=== PATIENT | male | born 1980 ===

== ENCOUNTER 2023-01-20 12:20 | Observation (INO) | payer OTHER ==
[2023-01-20] MEDS ORDERED: SODIUM CHLORIDE 0.9% 1,000 ML IV STA (12:51)
[2023-01-20] MEDS ORDERED: LORazepam 2 MG/ML INJ IV STA (12:52)
[2023-01-20] MEDS ORDERED: diphenhydrAMINE 50 MG/ML 1 ML VIAL IVP STA (12:52)
[2023-01-20] MEDS ORDERED: METOCLOPRAMIDE 5 MG/ML 2 ML VIAL IVP STA (12:52)
--- NOTE | 2023-01-20 12:53 | ED ---
General Adult HPI - General Chief complaint: Seizure Stated complaint: Seizure Time Seen by Provider: 01/20/23 12:30 Source: patient Mode of arrival: ambulatory Limitations: no limitations - History of Present Illness Initial comments: 42-year-old male presents to the emergency department from [place]. Patient is therefore opiate and cocaine abuse. He has been there for 4 days. He is on Subutex for withdrawal. Today the patient was found on the ground shaking. They were concerned for seizure-like activity. Patient has no history of seizures. Denies any alcohol use. They state that he was laying down and therefore there was no injury sustained. No head trauma. EMS found the patient to be in significant withdrawals. He was vomiting therefore he is given 4mg of Zofran by them. He arrives and continues to throw up. He states that previous to being hospitalized he was on methadone and he feels like he is withdrawing from his methadone. He denies chest pain or shortness of breath. No alleviating, precipitating or modifying factors - Related Data Home Medications Medication Instructions Recorded Confirmed Acetaminophen Tab [Tylenol] 650 mg PO Q4H MDD 4 doses 01/20/23 01/20/23 Calcium/Mag/Zinc/D 1 tab PO TID PRN 01/20/23 01/20/23 Chlorpheniramine Maleate 4 mg PO Q4H PRN 01/20/23 01/20/23 [Chlor-Trimeton] Ibuprofen [Motrin Ib] 600 mg PO Q6H PRN 01/20/23 01/20/23 Loperamide [Imodium] 4 mg PO QID PRN MDD 8 caps 01/20/23 01/20/23 Melatonin 5 mg PO HS 01/20/23 01/20/23 Multivitamins, Thera [Multivitamin 1 tab PO DAILY 01/20/23 01/20/23 (formulary)] Mylanta 30 ml PO Q4H PRN 01/20/23 01/20/23 Thiamine [Vitamin B-1] 100 mg PO DAILY 01/20/23 01/20/23 Tigan 200mg/2ml 200 mg IM Q6H PRN 01/20/23 01/20/23 Zofran 4mg/2ml 4 mg IM Q6H PRN 01/20/23 01/20/23 buprenorphine HCL [Subutex] 4 mg SUBLINGUAL DIRECTED 01/20/23 01/20/23 buprenorphine HCL [Subutex] See Taper SL DIRECTED 01/20/23 01/20/23 cloNIDine HCL [Catapres] 0.1 - 0.3 mg PO Q4H PRN 01/20/23 01/20/23 ondansetron HCL [Zofran] 8 mg PO Q6H PRN 01/20/23 01/20/23 Allergies Allergy/AdvReac Type Severity Reaction Status Date / Time bee pollen Allergy Anaphylaxis Verified 01/20/23 13:42 Review of Systems ROS Statement: Those systems with pertinent positive or pertinent negative responses have been documented in the HPI. ROS Other: All systems not noted in ROS Statement are negative. Past Medical History Additional Past Medical History / Comment(s): unknown cardiac hx. History of Any Multi-Drug Resistant Organisms: None Reported Past Surgical History: No Surgical Hx Reported Past Psychological History: No Psychological Hx Reported Smoking Status: Current every day smoker Past Drug Use History: Cocaine, Opiates General Exam Limitations: no limitations General appearance: alert, other (Arrives vomiting) Head exam: Present: atraumatic, normocephalic, normal inspection Eye exam: Present: normal appearance, PERRL, EOMI. Absent: scleral icterus, conjunctival injection, periorbital swelling ENT exam: Present: normal exam, mucous membranes moist Neck exam: Present: normal inspection. Absent: tenderness, meningismus, lymphadenopathy Respiratory exam: Present: normal lung sounds bilaterally. Absent: respiratory distress, wheezes, rales, rhonchi, stridor Cardiovascular Exam: Present: normal rhythm, bradycardia, normal heart sounds. Absent: systolic murmur, diastolic murmur, rubs, gallop, clicks GI/Abdominal exam: Present: soft, normal bowel sounds. Absent: distended, tenderness, guarding, rebound, rigid Extremities exam: Present: normal inspection, full ROM, normal capillary refill. Absent: tenderness, pedal edema, joint swelling, calf tenderness Back exam: Present: normal inspection Neurological exam: Present: alert, oriented X3, CN II-XII intact Psychiatric exam: Present: normal affect, normal mood Skin exam: Present: warm, dry, intact, normal color. Absent: rash Course Vital Signs 01/20/23 01/20/23 01/20/23 12:27 13:15 14:16 Temperature 98 F Pulse Rate 46 L 48 L 55 L Respiratory 18 16 16 Rate Blood Pressure 136/88 140/67 136/76 O2 Sat by Pulse 100 100 100 Oximetry 01/20/23 01/20/23 16:14 18:07 Temperature 98.0 F 99.6 F Pulse Rate 47 L 48 L Respiratory 18 16 Rate Blood Pressure 144/79 153/85 O2 Sat by Pulse 100 99 Oximetry Medical Decision Making - Medical Decision Making Was pt. sent in by a medical professional or institution (, PA, CONTAINER MAKER, urgent care, hospital, or [place] health care facility...) When possible be specific @ -[place] Did you speak to anyone other than the patient for history (EMS, parent, family, police, friend...)? What history was obtained from this source @ -EMS Did you review nursing and triage notes (agree or disagree)? Why? @ -I reviewed and agree with nursing and triage notes Were old charts reviewed (outside hosp., previous admission, EMS record, old EKG, old radiological studies, urgent care reports/EKG's, [place] health care facility records)? Report findings @ -No old charts were reviewed Differential Diagnosis (chest pain, altered mental status, abdominal pain women, abdominal pain men, vaginal bleeding, weakness, fever, dyspnea, syncope, headache, dizziness, GI bleed, back pain, seizure, CVA, palpatations, mental health, musculoskeletal)? @ -Differential Seizure: Recurrent seizure disorder, febrile seizure, alcohol withdrawal, stimulants, meningitis, encephalitis, intercranial hemorrhage, intracranial tumor, stroke, eclampsia, thyrotoxicosis, hypocalcemia, hyponatremia, hypernatremia, hypomagnesemia, psychogenic, this is not meant to be an all-inclusive list. EKG interpreted by me (3pts min.). @ -Yes and demonstrates sinus bradycardia with a rate of 49. CO interval 116. QRS 78. QTC 403. No acute ST segment elevations or depressions X-rays interpreted by me (1pt min.). @ -None done CT interpreted by me (1pt min.). @ -None done U/S interpreted by me (1pt. min.). @ -None done What testing was considered but not performed or refused? (CT, X-rays, U/S, labs)? Why? @ -None What meds were considered but not given or refused? Why? @ -None Did you discuss the management of the patient with other professionals (professionals i.e. , PA, CONTAINER MAKER, lab, RT, psych nurse, social work supervisor, financial internship, te acher, infantry weapons officer, disease case manager rn)? Give summary @ -Spoke with Dr. hassan for admission Was smoking cessation discussed for >3mins.? @ -No Was critical care preformed (if so, how long)? @ -No Were there social determinants of health that impacted care today? How? (Homelessness, low income, unemployed, alcoholism, drug addiction, transportation, low edu. Level, literacy, decrease access to med. care, long-term, rehab)? @ -No Was there de-escalation of care discussed even if they declined (Discuss DNR or withdrawal of care, Hospice)? DNR status @ -No What co-morbidities impacted this encounter? (DM, HTN, Smoking, COPD, CAD, Cancer, CVA, ARF, Chemo, Hep., AIDS, mental health diagnosis, sleep apnea, morbid obesity)? @ -Polysubstance abuse Was patient admitted / discharged? Hospital course, mention meds given and route, prescriptions, significant lab abnormalities, going to OR and other pertinent info. @ -Upon arrival patient was placed into room 9. Thorough history and physical exam was performed. IV was established. He was given Reglan and Benadryl as well as Ativan. Laboratory studies were conducted. Recommended admission for significant withdrawal for which the patient was agreeable. Spoke with Dr. hassan who agreed with the patient Undiagnosed new problem with uncertain prognosis? @ -No Drug Therapy requiring intensive monitoring for toxicity (Heparin, Nitro, Insulin, Cardizem)? @ -No Were any procedures done? @ -No Diagnosis/symptom? @ -Acute nausea vomiting, acute cocaine and opiate withdrawal, possible seizure-like activity Acute, or Chronic, or Acute on Chronic? @ -Acute Uncomplicated (without systemic symptoms) or Complicated (systemic symptoms)? @ -Complicated Side effects of treatment? @ -No Exacerbation, Progression, or Severe Exacerbation? @ -No Poses a threat to life or bodily function? How? (Chest pain, [place], HI, pneumonia, PE, COPD, DKA, ARF, appy, cholecystitis, CVA, Diverticulitis, Homicidal, Suicidal, threat to staff... and all critical care pts) @ -No - Lab Data Result diagrams: 01/21/23 05:56 01/21/23 05:56 Lab Results 01/20/23 01/20/23 01/20/23 Range/Units 12:57 12:57 12:57 WBC 8.3 (3.8-10.6) k/uL RBC 5.46 (4.30-5.90) m/uL Hgb 15.5 (13.0-17.5) gm/dL Hct 45.6 (39.0-53.0) % MCV 83.4 (80.0-100.0) fL MCH 28.4 (25.0-35.0) pg MCHC 34.0 (31.0-37.0) g/dL RDW 13.7 (11.5-15.5) % Plt Count 370 (150-450) k/uL MPV 6.8 Neutrophils % 72 % Lymphocytes % 23 % Monocytes % 3 % Eosinophils % 1 % Basophils % 0 % Neutrophils # 5.9 (1.3-7.7) k/uL Lymphocytes # 1.9 (1.0-4.8) k/uL Monocytes # 0.2 (0-1.0) k/uL Eosinophils # 0.1 (0-0.7) k/uL Basophils # 0.0 (0-0.2) k/uL Sodium 140 (137-145) mmol/L Potassium 4.2 (3.5-5.1) mmol/L Chloride 103 (98-107) mmol/L Carbon Dioxide 23 (22-30) mmol/L Anion Gap 14 mmol/L BUN 10 (9-20) mg/dL Creatinine 0.77 (0.66-1.25) mg/dL Est GFR (CKD-EPI)AfAm >90 (>60 ml/min/1.73 sqM) Est GFR (CKD-EPI)NonAf >90 (>60 ml/min/1.73 sqM) Glucose 125 H (74-99) mg/dL Lactic Ac Sepsis Rflx Plasma Lactic Acid Michael (0.7-2.0) mmol/L Calcium 10.6 H (8.4-10.2) mg/dL Magnesium 2.4 H (1.6-2.3) mg/dL Total Bilirubin 0.6 (0.2-1.3) mg/dL AST 23 (17-59) U/L ALT 20 (4-49) U/L Alkaline Phosphatase 91 (38-126) U/L Creatine Kinase 130 (55-170) U/L Troponin I (0.000-0.034) ng/mL Total Protein 9.4 H (6.3-8.2) g/dL Albumin 5.1 H (3.5-5.0) g/dL Prolactin 6.600 (2.100-17.000) ng/mL Urine Color Light Yellow Urine Appearance Cloudy (Clear) Urine pH 8.5 H (5.0-8.0) Ur Specific [place] 1.015 (1.001-1.035) Urine Protein Trace H (Negative) Urine Glucose (UA) Negative (Negative) Urine Ketones Negative (Negative) Urine Blood Negative (Negative) Urine Nitrite Negative (Negative) Urine Bilirubin Negative (Negative) Urine Urobilinogen <2.0 (<2.0) mg/dL Ur Leukocyte Esterase Negative (Negative) Urine RBC 1 (0-5) /hpf Urine WBC 1 (0-5) /hpf Amorphous Sediment Rare H (None) /hpf Urine Mucus Rare H (None) /hpf Urine Opiates Screen Not Detected (NotDetected) Ur Oxycodone Screen Not Detected (NotDetected) Urine Methadone Screen Not Detected (NotDetected) Ur Propoxyphene Screen Not Detected (NotDetected) Ur Barbiturates Screen Not Detected (NotDetected) U Tricyclic Antidepress Not Detected (NotDetected) Ur Phencyclidine Scrn Not Detected (NotDetected) Ur Amphetamines Screen Not Detected (NotDetected) U Methamphetamines Scrn Not Detected (NotDetected) U Benzodiazepines Scrn Not Detected (NotDetected) Urine Cocaine Screen Detected H (NotDetected) U Marijuana (THC) Screen Not Detected (NotDetected) 01/20/23 01/20/23 01/20/23 Range/Units 12:57 12:57 14:44 WBC (3.8-10.6) k/uL RBC (4.30-5.90) m/uL Hgb (13.0-17.5) gm/dL Hct (39.0-53.0) % MCV (80.0-100.0) fL MCH (25.0-35.0) pg MCHC (31.0-37.0) g/dL RDW (11.5-15.5) % Plt Count (150-450) k/uL MPV Neutrophils % % Lymphocytes % % Monocytes % % Eosinophils % % Basophils % % Neutrophils # (1.3-7.7) k/uL Lymphocytes # (1.0-4.8) k/uL Monocytes # (0-1.0) k/uL Eosinophils # (0-0.7) k/uL Basophils # (0-0.2) k/uL Sodium (137-145) mmol/L Potassium (3.5-5.1) mmol/L Chloride (98-107) mmol/L Carbon Dioxide (22-30) mmol/L Anion Gap mmol/L BUN (9-20) mg/dL Creatinine (0.66-1.25) mg/dL Est GFR (CKD-EPI)AfAm (>60 ml/min/1.73 sqM) Est GFR (CKD-EPI)NonAf (>60 ml/min/1.73 sqM) Glucose (74-99) mg/dL Lactic Ac Sepsis Rflx Y Plasma Lactic Acid Michael 2.4 H* (0.7-2.0) mmol/L Calcium (8.4-10.2) mg/dL Magnesium (1.6-2.3) mg/dL Total Bilirubin (0.2-1.3) mg/dL AST (17-59) U/L ALT (4-49) U/L Alkaline Phosphatase (38-126) U/L Creatine Kinase (55-170) U/L Troponin I <0.012 (0.000-0.034) ng/mL Total Protein (6.3-8.2) g/dL Albumin (3.5-5.0) g/dL Prolactin (2.100-17.000) ng/mL Urine Color Urine Appearance (Clear) Urine pH (5.0-8.0) Ur Specific [place] (1.001-1.035) Urine Protein (Negative) Urine Glucose (UA) (Negative) Urine Ketones (Negative) Urine Blood (Negative) Urine Nitrite (Negative) Urine Bilirubin (Negative) Urine Urobilinogen (<2.0) mg/dL Ur Leukocyte Esterase (Negative) Urine RBC (0-5) /hpf Urine WBC (0-5) /hpf Amorphous Sediment (None) /hpf Urine Mucus (None) /hpf Urine Opiates Screen (NotDetected) Ur Oxycodone Screen (NotDetected) Urine Methadone Screen (NotDetected) Ur Propoxyphene Screen (NotDetected) Ur Barbiturates Screen (NotDetected) U Tricyclic Antidepress (NotDetected) Ur Phencyclidine Scrn (NotDetected) Ur Amphetamines Screen (NotDetected) U Methamphetamines Scrn (NotDetected) U Benzodiazepines Scrn (NotDetected) Urine Cocaine Screen (NotDetected) U Marijuana (THC) Screen (NotDetected) Disposition Clinical Impression: Vomiting, Opiate withdrawal, Seizure-like activity Disposition: ADMITTED IP TO THIS [facility] Condition: Stable Is patient prescribed a controlled substance at d/c from ED?: No Time of Disposition: 15:35 Decision to Admit Reason: Admit from EC Decision Date: 01/20/23 Decision Time: 15:35
[2023-01-20 13:17] LABS: Basophils % (A) 0 %; Eosinophils # (A) 0.1 k/uL (0-0.7); Eosinophils % (A) 1 %; HCT 45.6 % (39.0-53.0); HGB 15.5 gm/dL (13.0-17.5); Lymphocytes # (A) 1.9 k/uL (1.0-4.8); Lymphocytes % (A) 23 %; MCH 28.4 pg (25.0-35.0); MCV 83.4 fL (80.0-100.0); Mean Platelet Volume 6.8; Monocytes # (A) 0.2 k/uL (0-1.0); Monocytes % (A) 3 %; Neutrophils # (A) 5.9 k/uL (1.3-7.7); Neutrophils % (A) 72 %; Platelet Count 370 k/uL (150-450); RBC 5.46 m/uL (4.30-5.90); RDW 13.7 % (11.5-15.5); WBC 8.3 k/uL (3.8-10.6)
[2023-01-20 13:27] LABS: ALT 20 U/L (4-49); AST 23 U/L (17-59); African American GFR (CKD) >90 (>60 ml/min/1.73 sqM); Albumin 5.1 g/dL (3.5-5.0); Alkaline Phosphatase 91 U/L (38-126); Anion Gap 14 mmol/L; Blood Urea Nitrogen 10 mg/dL (9-20); Calcium 10.6 mg/dL (8.4-10.2); Carbon Dioxide 23 mmol/L (22-30); Chloride 103 mmol/L (98-107); Creatine Kinase 130 U/L (55-170); Glucose 125 mg/dL (74-99); Magnesium 2.4 mg/dL (1.6-2.3); Non-African American GFR(CKD) >90 (>60 ml/min/1.73 sqM); Potassium 4.2 mmol/L (3.5-5.1); Sodium 140 mmol/L (137-145); Total Bilirubin 0.6 mg/dL (0.2-1.3); Total Protein 9.4 g/dL (6.3-8.2)
[2023-01-20 14:24] LABS: Amorphous Sediment,Urine Rare /hpf; Appearance,Urine Cloudy (Clear); Bilirubin,Urine Negative (Negative); Blood,Urine Negative (Negative); Color,Urine Light Yellow; Glucose,Urine (UA) Negative (Negative); Ketones,Urine Negative (Negative); Leukocyte Esterase,Urine Negative (Negative); Mucus,Urine Rare /hpf; Nitrite,Urine Negative (Negative); PH, Urine 8.5 (5.0-8.0); Protein,Urine Trace (Negative); RBC,Urine 1 /hpf (0-5); Specific Gravity,Urine 1.015 (1.001-1.035); Urobilinogen,Urine <2.0 mg/dL (<2.0); WBC,Urine 1 /hpf (0-5)
[2023-01-20 14:30] LABS: Amphetamine Screen,Urine Not Detected (NotDetected); Barbiturate Screen,Urine Not Detected (NotDetected); Benzodiazepines Screen,Urine Not Detected (NotDetected); Cocaine Screen,Urine Detected (NotDetected); Methadone Screen, Urine Not Detected (NotDetected); Opiate Screen,Urine Not Detected (NotDetected); Oxycodone Screen, Urine Not Detected (NotDetected); Phencyclidine Screen,Urine Not Detected (NotDetected); Tricyclic Antidepressant,Urine Not Detected (NotDetected); Urn Cannabinoid Scrn Not Detected (NotDetected)
[2023-01-20] MEDS ORDERED: NALOXONE 0.4 MG/ML 1 ML VIAL IV PRN (15:35)
[2023-01-20] MEDS: SODIUM CHLORIDE 0.9% 1,000 ML IV SCH ×2 (16:11→23:55)
[2023-01-20] MEDS ORDERED: CYCLOBENZAPRINE 10 MG TAB PO STA (16:16)
--- NOTE | 2023-01-20 18:09 | CT ---
EXAMINATION TYPE: CT brain wo con DATE OF EXAM: 01/20/2023 COMPARISON: none HISTORY: seizure CT DLP: 1120.[address] of the brain was performed. The ventricles, basal cisterns and sulci overlying the cerebral convexities demonstrate a normal appe arance. There is no evidence for intracranial hemorrhage or sulcal effacement. No mass effects are seen. Osseous calvarium is intact. Mucous retention cyst right maxillary sinus. If symptoms persist consider MRI as clinically warranted. IMPRESSION: 1. No acute intracranial process is seen at this time.
[2023-01-20] MEDS ORDERED: ACETAMINOPHEN TAB 325 MG TAB PO PRN (19:27)
[2023-01-20] MEDS ORDERED: diphenhydrAMINE 25 MG CAP PO PRN (19:28)
--- NOTE | 2023-01-20 19:32 | P.HPIM ---
History of Present Illness This is a pleasant 43 years old male with past medical history of drug abuse. Presents with signs symptoms of substance withdrawal Patient originally from [place] and was on methadone. Patient for about one week and he said he took fentanyl and Suboxone, however patient states that he got tired of the drug and he wanted to quit so he admitted himself to [place] about 4 days ago however as part of his treatment he started developing severe withdrawal symptoms like vomiting although there was no blood in the bile and greenish insertion with sweating tiredness malaise fatigue insomnia but no pain. He is also smokes about 1 pack per day and he was counseled to quit and he agrees with the nicotine patch no alcohol. He uses mainly cocaine last time he was at was just before he got to [place] about 4 days ago that his trying to quit now. Also patient reports of having seizure while he was at [place] from abdominal cramps patient denies homicidal or suicidal ideation or hallucination He drinks minimal or no alcohol He denies urinary symptoms however he complains and heartburns but no overt abdominal pain. He has some dry cough but no chest pain or dyspnea. No headache dizziness weakness or numbness. Patient has no primary care doctor Afebrile, He is bradycardic with heart rate about 46-48. Labs are reviewed he has unremarkable CBC, BMP. Glucose 125 slightly elevated. Lactic acid came back to normal at 1.4. Calcium 10.6, magnesium 2.4. Liver enzymes not elevated. Urine analysis is no suspicious of infection. And is positive for cocaine CT of the brain showing no acute process. EKG shows sinus bradycardia with short LA interval at rate of 49. QTC 403. No significant ST-T changes. Review of Systems Review of systems CONSTITUTIONAL: No fever, no malaise, no fatigue. HEENT: No recent visual problems or hearing problems. Denied any sore throat. CARDIOVASCULAR: No orthopnea, PND, no palpitations, no syncope. PULMONARY: No shortness of breath, no cough, no hemoptysis. GASTROINTESTINAL: No diarrhea, no nausea, no vomiting, no abdominal pain. Normoactive bowel sounds. NEUROLOGICAL: No headaches, no weakness, no numbness. HEMATOLOGICAL: Denies any bleeding or petechiae. GENITOURINARY: Denies any burning micturition, frequency, or urgency. MUSCULOSKELETAL/RHEUMATOLOGICAL: Denies any joint pain, swelling, or any muscle pain. ENDOCRINE: Denies any polyuria or polydipsia. Past Medical History Additional Past Medical History / Comment(s): unknown cardiac hx. History of Any Multi-Drug Resistant Organisms: None Reported Past Surgical History: No Surgical Hx Reported Past Psychological History: No Psychological Hx Reported Smoking Status: Current every day smoker Past Drug Use History: Cocaine, Opiates Medications and Allergies Home Medications Medication Instructions Recorded Confirmed Type Acetaminophen Tab [Tylenol] 650 mg PO Q4H MDD 4 doses 01/20/23 01/20/23 History Calcium/Mag/Zinc/D 1 tab PO TID PRN 01/20/23 01/20/23 History Chlorpheniramine Maleate 4 mg PO Q4H PRN 01/20/23 01/20/23 History [Chlor-Trimeton] Ibuprofen [Motrin Ib] 600 mg PO Q6H PRN 01/20/23 01/20/23 History Loperamide [Imodium] 4 mg PO QID PRN MDD 8 caps 01/20/23 01/20/23 History Melatonin 5 mg PO HS 01/20/23 01/20/23 History Multivitamins, Thera [Multivitamin 1 tab PO DAILY 01/20/23 01/20/23 History (formulary)] Mylanta 30 ml PO Q4H PRN 01/20/23 01/20/23 History Thiamine [Vitamin B-1] 100 mg PO DAILY 01/20/23 01/20/23 History Tigan 200mg/2ml 200 mg IM Q6H PRN 01/20/23 01/20/23 History Zofran 4mg/2ml 4 mg IM Q6H PRN 01/20/23 01/20/23 History buprenorphine HCL [Subutex] 4 mg SUBLINGUAL DIRECTED 01/20/23 01/20/23 History buprenorphine HCL [Subutex] See Taper SL DIRECTED 01/20/23 01/20/23 History cloNIDine HCL [Catapres] 0.1 - 0.3 mg PO Q4H PRN 01/20/23 01/20/23 History ondansetron HCL [Zofran] 8 mg PO Q6H PRN 01/20/23 01/20/23 History Allergies Allergy/AdvReac Type Severity Reaction Status Date / Time bee pollen Allergy Anaphylaxis Verified 01/20/23 13:42 Physical Exam Vitals: Vital Signs Temp Pulse Resp BP Pulse Ox 01/20/23 18:07 99.6 F 48 L 16 153/85 99 01/20/23 16:14 98.0 F 47 L 18 144/79 100 01/20/23 14:16 55 L 16 136/76 100 01/20/23 13:15 48 L 16 140/67 100 01/20/23 12:27 98 F 46 L 18 136/88 100 Intake and Output 01/20/23 01/20/23 01/20/23 06:59 14:59 22:59 Other: Weight 90.718 kg -GENERAL: The patient is alert and oriented x3, not in any acute distress. Well developed, well nourished. Patient is fatigued tired with sweating, it looks withdrawn HEENT: Pupils are round and equally reacting to light. EOMI. No scleral icterus. No conjunctival pallor. Normocephalic, atraumatic. No pharyngeal erythema. No thyromegaly. CARDIOVASCULAR: S1 and S2 present. No murmurs, rubs, or gallops. PULMONARY: Chest is clear to auscultation, no wheezing , no crackles. ABDOMEN: Soft, nontender, nondistended, normoactive bowel sounds. No palpable organomegaly. MUSCULOSKELETAL: No joint swelling or deformity. EXTREMITIES: No cyanosis, clubbing, or pedal edema. NEUROLOGICAL: Gross neurological examination did not reveal any focal deficits. SKIN: No rashes. no petechiae. Results CBC & Chem 7: 01/20/23 12:57 01/20/23 12:57 Labs: Abnormal Lab Results - Last 24 Hours (Table) 01/20/23 01/20/23 01/20/23 Range/Units 12:57 12:57 12:57 Glucose 125 H (74-99) mg/dL Plasma Lactic Acid Michael 2.4 H* (0.7-2.0) mmol/L Calcium 10.6 H (8.4-10.2) mg/dL Magnesium 2.4 H (1.6-2.3) mg/dL Total Protein 9.4 H (6.3-8.2) g/dL Albumin 5.1 H (3.5-5.0) g/dL Urine pH 8.5 H (5.0-8.0) Urine Protein Trace H (Negative) Amorphous Sediment Rare H (None) /hpf Urine Mucus Rare H (None) /hpf Urine Cocaine Screen Detected H (NotDetected) Assessment and Plan Assessment: With cocaine, fentanyl also he was on Suboxone a certain point Withdrawal symptoms from above Possible seizure which could be due to withdrawal effect. Sinus bradycardia with short LA interval Nicotine dependence Plan: Symptomatic treatment of withdrawal symptoms Neurology consult recommending EEG In with telemetry Check TSH Cardiology consult IV hydration Labs and medication were reviewed.. Continue same treatment. Continue with symptomatic treatment. Resume home medication. Monitor labs and vitals. DVT and GI prophylaxis. Further recommendations as per clinical course of the patient DVT prophylaxis: Subcutaneous heparin GI Prophylaxis: Pepcid PT/OT: Pending Prognosis is guarded
[2023-01-21] MEDS: IBUPROFEN 400 MG TAB PO PRN ×2 (08:44→20:01)
[2023-01-21] MEDS: diazePAM 5 MG TAB PO PRN ×2 (08:44→20:01)
[2023-01-21] MEDS: SODIUM CHLORIDE 0.9% 1,000 ML IV SCH ×2 (08:45→18:21)
[2023-01-21 09:46] LABS: Basophils # (A) 0.02 X 10*3/uL (0.00-0.10); Basophils % (A) 0.3 %; Eosinophils # (A) 0.02 X 10*3/uL (0.04-0.35); Eosinophils % (A) 0.3 %; HCT 39.7 % (39.6-50.0); HGB 13.8 d/dL (13.0-17.0); Lymphocytes % (A) 32.3 %; MCHC 34.8 d/dL (32.0-37.0); MCV 80.7 FL (80.0-97.0); Monocytes # (A) 0.45 X 10*3/uL (0.20-1.00); Monocytes % (A) 6.1 %; NRBC Per 100 WBC 0 X 10*3/uL (0.00-0.01); Neutrophils # (A) 4.51 X 10*3/uL (1.80-7.70); Neutrophils % (A) 60.7 %; Platelet Count 328 X 10*3/uL (140-440); RBC 4.92 X 10*6/uL (4.40-5.60); RDW 13.4 % (11.5-14.5); WBC 7.42 X 10*3/uL (4.50-10.00)
[2023-01-21 10:08] LABS: Blood Urea Nitrogen 7.6 mg/dL (9.0-27.0); Calcium 9.4 mg/dL (8.7-10.3); Carbon Dioxide 20.8 mmol/L (21.6-31.8); Chloride 103 mmol/L (96-109); Glucose 112 mg/dL (70-110); Potassium 4.5 mmol/L (3.5-5.5); Sodium 136 mmol/L (135-145)
--- NOTE | 2023-01-21 11:08 | P.CRDCN ---
History of Present Illness History of present illness: HISTORY OF PRESENT ILLNESS: This is a 42-year-old male with a past medical history significant for drug abuse. Patient does not follow with a chief financial officer. We have been asked to see the patient in consultation for bradycardia. Patient examined at the bedside. a she is resting in bed comfortably. No complaint of chest pain or pressure. No complaints of shortness of breath. Telemetry reveals sinus bradycardia with heart rate in the 40s. TSH 1.390. REVIEW OF SYSTEMS: At the time of my exam: CONSTITUTIONAL: Denies fever or chills. HEENT: Denies blurred vision, vision changes, or eye pain. Denies hemoptysis CARDIOVASCULAR: Denies chest pain. Denies orthopnea. Denies PND. Denies palpitations RESPIRATORY: Denies shortness of breath. GASTROINTESTINAL: Denies abdominal pain. Denies nausea or vomiting. HEMATOLOGIC: Denies bleeding disorders. GENITOURINARY: Denies any blood in urine. SKIN: Denies pruitis. Denies rash. PHYSICAL EXAM: VITAL SIGNS: Reviewed. GENERAL: Well-developed in no acute distress. HEENT: Head is normocephalic. Pupils are equal, round. Sclerae anicteric. Mucous membranes of the mouth are moist. Neck supple. No JVD or thyromegaly LUNGS: Respirations even and unlabored. Lungs essentially clear to auscultation bilaterally. HEART: bradycardic. Regular rate and rhythm. S1 and S2 heard. ABDOMEN: Soft. Nondistended. Nontender. EXTREMITIES: Normal range of motion. No clubbing or cyanosis. Peripheral pulses intact. No lower extremity edema NEUROLOGIC: Awake and alert. Oriented x 3. ASSESSMENT: Drug abuse, toxicology screen positive for cocaine Asymptomatic sinus bradycardia Possible seizure Nicotine dependence PLAN: continue telemetry monitoring. Obtain 2D echo to assess cardiac structure and function. If 2-D echo does not reveal any significant abnormalities, we will sign off Nurse practitioner note has been reviewed by physician. Signing provider agrees with the documented findings, assessment, and plan of care. Past Medical History Additional Past Medical History / Comment(s): unknown cardiac hx. History of Any Multi-Drug Resistant Organisms: None Reported Past Surgical History: No Surgical Hx Reported Past Anesthesia/Blood Transfusion Reactions: No Reported Reaction Past Psychological History: No Psychological Hx Reported Smoking Status: Current every day smoker Past Drug Use History: Cocaine, Opiates Medications and Allergies Home Medications Medication Instructions Recorded Confirmed Type Acetaminophen Tab [Tylenol] 650 mg PO Q4H MDD 4 doses 01/20/23 01/20/23 History Calcium/Mag/Zinc/D 1 tab PO TID PRN 01/20/23 01/20/23 History Chlorpheniramine Maleate 4 mg PO Q4H PRN 01/20/23 01/20/23 History [Chlor-Trimeton] Ibuprofen [Motrin Ib] 600 mg PO Q6H PRN 01/20/23 01/20/23 History Loperamide [Imodium] 4 mg PO QID PRN MDD 8 caps 01/20/23 01/20/23 History Melatonin 5 mg PO HS 01/20/23 01/20/23 History Multivitamins, Thera [Multivitamin 1 tab PO DAILY 01/20/23 01/20/23 History (formulary)] Mylanta 30 ml PO Q4H PRN 01/20/23 01/20/23 History Thiamine [Vitamin B-1] 100 mg PO DAILY 01/20/23 01/20/23 History Tigan 200mg/2ml 200 mg IM Q6H PRN 01/20/23 01/20/23 History Zofran 4mg/2ml 4 mg IM Q6H PRN 01/20/23 01/20/23 History buprenorphine HCL [Subutex] 4 mg SUBLINGUAL DIRECTED 01/20/23 01/20/23 Hi story buprenorphine HCL [Subutex] See Taper SL DIRECTED 01/20/23 01/20/23 History cloNIDine HCL [Catapres] 0.1 - 0.3 mg PO Q4H PRN 01/20/23 01/20/23 History ondansetron HCL [Zofran] 8 mg PO Q6H PRN 01/20/23 01/20/23 History Allergies Allergy/AdvReac Type Severity Reaction Status Date / Time bee pollen Allergy Anaphylaxis Verified 01/20/23 13:42 Physical Exam Vitals: Vital Signs Temp Pulse Pulse Resp BP BP Pulse Ox 01/21/23 07:48 98.7 F 43 L 16 125/69 01/21/23 00:50 98.1 F 51 L 17 139/72 100 01/20/23 22:30 98.9 F 47 L 18 137/76 100 01/20/23 18:07 99.6 F 48 L 16 153/85 99 01/20/23 16:14 98.0 F 47 L 18 144/79 100 01/20/23 14:16 55 L 16 136/76 100 01/20/23 13:15 48 L 16 140/67 100 01/20/23 12:27 98 F 46 L 18 136/88 100 Intake and Output 01/20/23 01/21/23 01/21/23 22:59 06:59 14:59 Intake Total 240 Balance 240 Intake: Oral 240 Other: Voiding Method Toilet Urinal # Voids 1 Weight 90.718 kg Results 01/21/23 05:56 01/21/23 05:56 Cardiac Enzymes 01/20/23 01/20/23 Range/Units 12:57 12:57 AST 23 (17-59) U/L Troponin I <0.012 (0.000-0.034) ng/mL CBC 01/20/23 01/21/23 Range/Units 12:57 05:56 WBC 8.3 7.42 (3.8-10.6) k/uL RBC 5.46 4.92 (4.30-5.90) m/uL Hgb 15.5 13.8 (13.0-17.5) gm/dL Hct 45.6 39.7 (39.0-53.0) % Plt Count 370 328 (150-450) k/uL Comprehensive Metabolic Panel 01/20/23 01/21/23 Range/Units 12:57 05:56 Sodium 140 136 (137-145) mmol/L Potassium 4.2 4.5 (3.5-5.1) mmol/L Chloride 103 103 (98-107) mmol/L Carbon Dioxide 23 20.8 L (22-30) mmol/L BUN 10 7.6 L (9-20) mg/dL Creatinine 0.77 0.8 (0.66-1.25) mg/dL Glucose 125 H 112 H (74-99) mg/dL Calcium 10.6 H 9.4 (8.4-10.2) mg/dL AST 23 (17-59) U/L ALT 20 (4-49) U/L Alkaline Phosphatase 91 (38-126) U/L Total Protein 9.4 H (6.3-8.2) g/dL Albumin 5.1 H (3.5-5.0) g/dL Current Medications Generic Name Dose Route Start Last Admin Trade Name Freq PRN Reason Stop Dose Admin Acetaminophen 650 mg 01/20/23 19:27 Acetaminophen Tab 325 Mg Tab PO Q6HR PRN Fever and/ or Pain Diazepam 5 mg 01/20/23 19:27 01/21/23 08:44 Diazepam 5 Mg Tab PO 5 mg TID PRN Administration Anxiety Diphenhydramine HCl 25 mg 01/20/23 19:28 Diphenhydramine 25 Mg Cap PO TID PRN Itching Sodium Chloride 1,000 mls @ 130 mls/hr 01/20/23 15:45 01/21/23 08:45 Saline 0.9% IV 130 mls/hr .Q7H42M JOANIE Administration Ibuprofen 400 mg 01/20/23 19:27 01/21/23 08:44 Ibuprofen 400 Mg Tab PO 400 mg Q6HR PRN Administration Pain Naloxone HCl 0.2 mg 01/20/23 15:35 Naloxone 0.4 Mg/Ml 1 Ml Vial IV Q2M PRN Opioid Reversal Ondansetron HCl 4 mg 01/20/23 15:35 Ondansetron 4 Mg/2 Ml Vial IVP Q8HR PRN Nausea And Vomiting Intake and Output 01/20/23 01/21/23 01/21/23 22:59 06:59 14:59 Intake Total 240 Balance 240 Intake: Oral 240 Other: Voiding Method Toilet Urinal # Voids 1 Weight 90.718 kg 01/21/23 05:56 01/21/23 05:56
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
[2023-01-21] MEDS: ONDANSETRON 4 MG/2 ML VIAL IVP PRN ×2 (12:49→22:55)
--- NOTE | 2023-01-21 19:31 | EEG ---
ELECTROENCEPHALOGRAM REPORT CLINICAL HISTORY: This is a 42-year-old gentleman with polysubstance use, who presented from [facility] because he was found down and shaking. The video EEG is obtained to evaluate for seizure and epileptiform activity. RELEVANT MEDICATIONS: Valium p.r.n. EEG TYPE: A routine 21-channel EEG with video using the 10/20 electrode placement system. DESCRIPTION: Wakefulness is only obtained. During awake state, the posterior-dominant rhythm consists of zeo-ak-adsmogie voltage of 9 to 9.5 Hz activity, that is well modulated and well sustained. There is no physiological stage II sleep architecture. There is no focal slowing. INTERICTAL AND ICTAL: None. ACTIVATION PROCEDURE: Photic stimulation did evoke a posterior driving response at 8 Hz activity. There is no abnormality during the photic stimulation. Hyperventilation is not performed. CLINICAL INTERPRETATION: This is a normal routine EEG. There is no focal slowing, epileptiform discharges, or seizure on the EEG. A normal routine EEG did not rule out any underlying epilepsy. Clinical correlation is recommended. MMTABITHA / NADEGEN: [id number] /
[2023-01-22] MEDS: SODIUM CHLORIDE 0.9% 1,000 ML IV SCH ×2 (04:04→05:29)
[2023-01-22] MEDS: ONDANSETRON 4 MG/2 ML VIAL IVP PRN (06:48)
[2023-01-22 09:44] VITALS: TEMP 98.1
--- NOTE | 2023-01-22 12:19 | CA ---
Transthoracic Echo Report Name: Aramis Brooks Age: 42 Gender: M : 1980 Exam Date: 01/21/2023 16:37 Exam Location: [facility] Ht (in): 71 Wt (lb): 200 Ordering Physician: Mary Contreras Attending/Referring Phys: [id number], Diane Mixer And Scaler Aracelis Flor RDCS Procedure CPT: Indications: LV function Cardiac Hx: Technical Quality: Fair Contrast 1: Total Dose (mL): Contrast 2: Total Dose (mL): MEASUREMENTS (Male / Female) Normal Values 2D ECHO LV Diastolic Diameter PLAX 5.4 cm 4.2 - 5.9 / 3.9 - 5.3 cm LV Systolic Diameter PLAX 2.5 cm IVS Diastolic Thickness 1.2 cm 0.6 - 1.0 / 0.6 - 0.9 cm LVPW Diastolic Thickness 1.0 cm 0.6 - 1.0 / 0.6 - 0.9 cm LV Relative Wall Thickness 0.4 RV Internal Dim ED PLAX 3.2 cm LA Volume 50.1 cm??? 18 - 58 / 22 - 52 cm??? M-MODE Aortic Root Diameter MM 3.5 cm LA Systolic Diameter MM 4.7 cm LA Ao Ratio MM 1.4 AV Cusp Separation MM 2.1 cm DOPPLER AV Peak Velocity 141.8 cm/s AV Peak Gradient 8.0 mmHg AV Mean Velocity 86.3 cm/s AV Mean Gradient 3.4 mmHg AV Velocity Time Integral 29.9 cm LVOT Peak Velocity 119.3 cm/s LVOT Peak Gradient 5.7 mmHg LVOT Velocity Time Integral 28.1 cm MV Area PHT 3.4 cm??? Mitral E Point Velocity 102.3 cm/s Mitral A Point Velocity 44.6 cm/s Mitral E to A Ratio 2.3 MV Deceleration Time 224.7 ms MV E' Velocity 11.6 cm/s Mitral E to MV E' Ratio 8.8 FINDINGS Left Ventricle Mildly increased left ventricular wall thickness. Left ventricular cavity size normal. Normal left ventricular systolic function with no obvious regional wall motion abnormalities. Left ventricular ejection fraction is estimated at 55-60 %. Right Ventricle Normal right ventricular size and function. Right ventricular systolic pressure within normal limits. Right Atrium Normal right atrial size. Left Atrium Normal left atrial size. Mitral Valve Structurally normal mitral valve. Mild mitral regurgitation. Aortic Valve Trileaflet aortic valve. No aortic valve stenosis or regurgitation. Tricuspid Valve Structurally normal tricuspid valve. Trace to mild tricuspid regurgitation. Pulmonic Valve Structurally normal pulmonic valve. Pericardium No pericardial effusion. Aorta Normal size aortic root and proximal ascending aorta. CONCLUSIONS Normal LV size and systolic function Previewed by: Dr. Yunior Ragland MD (Electronically Signed) Final Date: 22 January 2023 12:18
[2023-01-22] MEDS: diazePAM 5 MG TAB PO PRN (13:26)
[2023-01-22] MEDS: IBUPROFEN 400 MG TAB PO PRN (13:30)
--- NOTE | 2023-01-22 13:54 | P.PN ---
Subjective Progress Note Date: 01/22/23 This is Collins West NP, I'm dictating on behalf of Dr. Ragland's H&P and A&P. Patient was interviewed and examined. Patient is a 42-year-old male who presented to the hospital with intractable nausea and vomiting, bradycardia, and was found positive for cocaine. Patient today reports that his whole body hurts, and he is barely awake enough to answer questions. Heart rate continues to demonstrate sinus bradycardia in the high 40s to low 50s. 2-D echo was completed and has been read. GENERAL: Well-appearing, well-nourished and in no acute distress. NECK: Supple without JVD or thyromegaly. LUNGS: Breath sounds clear to auscultation bilaterally. Respiration equal and unlabored. No wheezes, rales or rhonchi. HEART: Regular rate and rhythm without murmurs, rubs or gallops. S1 and S2 heard. EXTREMITIES: Normal range of motion, no edema. No clubbing or cyanosis. Peripheral pulses intact and strong. VITALS: Temp 98.1, pulse 44, respirations 15, blood pressure 146/77, O2 saturation 100% on room air TELEMETRY: Sinus bradycardia LABS: Ammonia 13 IMPRESSION: 1. Drug abuse, toxicology screen positive for cocaine 2. Asymptomatic sinus bradycardia 3. Possible seizure 4. Nicotine dependence PLAN: 2-D echo demonstrates normal LV size and systolic function, with no valvular abnormalities. Patient has no obvious cardiac reason for his sinus bradycardia. Likely secondary to drug abuse. The bradycardia is also asymptomatic. No further recommendations from a cardiac standpoint. Objective - Vital Signs Vital signs: Vital Signs Temp 98.1 F 01/22/23 09:41 Pulse 44 L 01/22/23 09:41 Resp 15 01/22/23 09:41 BP 146/77 01/22/23 09:41 Pulse Ox 100 01/22/23 09:41 FiO2 Intake & Output 01/21/23 01/22/23 01/22/23 18:59 06:59 18:59 Intake Total 1150 Output Total 200 275 Balance 950 -275 Intake: Intake, IV Titration 910 Amount Sodium Chloride 0.9% 1, 910 000 ml @ 130 mls/hr IV . Q7H42M [facility] Rx#:[id number] Oral 240 Output: Urine 275 Emesis 200 Other: Voiding Method Toilet Toilet Urinal Urinal # Voids 1 - Labs CBC & Chem 7: 01/21/23 05:56 01/21/23 05:56
[2023-01-22 14:16] VITALS: BP 138/79; PULSE 84; RESP 20
--- NOTE | 2023-01-22 14:36 | P.PN ---
Subjective Progress Note Date: 01/21/23 43 years old male with past medical history of drug abuse. Presents with signs symptoms of substance withdrawal Patient originally from [place] and was on methadone. Patient for about one week and he said he took fentanyl and Suboxone, however patient states that he got tired of the drug and he wanted to quit so he admitted himself to [facility] about 4 days ago however as part of his treatment he started developing severe withdrawal symptoms like vomiting although there was no blood in the bile and greenish insertion with sweating tiredness malaise fatigue insomnia but no pain. He is also smokes about 1 pack per day and he was counseled to quit and he agrees with the nicotine patch no alcohol. He uses mainly cocaine last time he was at was just before he got to [facility] about 4 days ago that his trying to quit now. Also patient reports of having seizure while he was at [facility] from abdominal cramps patient denies homicidal or suicidal ideation or hallucination He drinks minimal or no alcohol He denies urinary symptoms however he complains and heartburns but no overt abdominal pain. He has some dry cough but no chest pain or dyspnea. No headache dizziness weakness or numbness. Patient has no primary care doctor Afebrile, He is bradycardic with heart rate about 46-48. Labs are reviewed he has unremarkable CBC, BMP. Glucose 125 slightly elevated. Lactic acid came back to normal at 1.4. Calcium 10.6, magnesium 2.4. Liver enzymes not elevated. Urine analysis is no suspicious of infection. And is positive for cocaine CT of the brain showing no acute process. EKG shows sinus bradycardia with short RI interval at rate of 49. QTC 403. No significant ST-T changes. Objective - Vital Signs Vital signs: Vital Signs Temp 98.7 F 01/21/23 07:48 Pulse 43 L 01/21/23 07:48 Resp 16 01/21/23 07:48 BP 125/69 01/21/23 07:48 Pulse Ox 100 01/21/23 00:50 FiO2 Intake & Output 01/20/23 01/21/23 01/21/23 18:59 06:59 18:59 Intake Total 240 Balance 240 Weight 90.718 kg 90.718 kg Intake: Oral 240 Other: Voiding Method Toilet Urinal # Voids 1 - Exam -GENERAL: The patient is alert and oriented x3, not in any acute distress. Well developed, well nourished. Patient is fatigued tired with sweating, it looks withdrawn HEENT: Pupils are round and equally reacting to light. EOMI. No scleral icterus. No conjunctival pallor. Normocephalic, atraumatic. No pharyngeal erythema. No thyromegaly. CARDIOVASCULAR: S1 and S2 present. No murmurs, rubs, or gallops. PULMONARY: Chest is clear to auscultation, no wheezing , no crackles. ABDOMEN: Soft, nontender, nondistended, normoactive bowel sounds. No palpable organomegaly. MUSCULOSKELETAL: No joint swelling or deformity. EXTREMITIES: No cyanosis, clubbing, or pedal edema. NEUROLOGICAL: Gross neurological examination did not reveal any focal deficits. SKIN: No rashes. no petechiae. - Labs CBC & Chem 7: 01/21/23 05:56 01/21/23 05:56 Labs: Abnormal Lab Results - Last 24 Hours (Table) 01/20/23 01/20/23 01/20/23 Range/Units 12:57 12:57 12:57 MPV (9.5-12.2) FL Eosinophils # (0.04-0.35) X 10*3/uL Carbon Dioxide (21.6-31.8) mmol/L Anion Gap (4.00-12.00) mmol/L BUN (9.0-27.0) mg/dL BUN/Creatinine Ratio (12.00-20.00) Ratio Glucose 125 H (74-99) mg/dL Plasma Lactic Acid Michael 2.4 H* (0.7-2.0) mmol/L Calcium 10.6 H (8.4-10.2) mg/dL Magnesium 2.4 H (1.6-2.3) mg/dL Total Protein 9.4 H (6.3-8.2) g/dL Albumin 5.1 H (3.5-5.0) g/dL Urine pH 8.5 H (5.0-8.0) Urine Protein Trace H (Negative) Amorphous Sediment Rare H (None) /hpf Urine Mucus Rare H (None) /hpf Urine Cocaine Screen Detected H (NotDetected) 01/21/23 01/21/23 Range/Units 05:56 05:56 MPV 9.0 L (9.5-12.2) FL Eosinophils # 0.02 L (0.04-0.35) X 10*3/uL Carbon Dioxide 20.8 L (21.6-31.8) mmol/L Anion Gap 12.20 H (4.00-12.00) mmol/L BUN 7.6 L (9.0-27.0) mg/dL BUN/Creatinine Ratio 9.50 L (12.00-20.00) Ratio Glucose 112 H (74-99) mg/dL Plasma Lactic Acid Michael (0.7-2.0) mmol/L Calcium (8.4-10.2) mg/dL Magnesium (1.6-2.3) mg/dL Total Protein (6.3-8.2) g/dL Albumin (3.5-5.0) g/dL Urine pH (5.0-8.0) Urine Protein (Negative) Amorphous Sediment (None) /hpf Urine Mucus (None) /hpf Urine Cocaine Screen (NotDetected) Assessment and Plan Assessment: With cocaine, fentanyl also he was on Suboxone a certain point Withdrawal symptoms from above Possible seizure which could be due to withdrawal effect. Sinus bradycardia with short RI interval Nicotine dependence Plan: Symptomatic treatment of withdrawal symptoms Neurology consult recommending EEG In with telemetry Check TSH Cardiology consult IV hydration Labs and medication were reviewed.. Continue same treatment. Continue with symptomatic treatment. Resume home medication. Monitor labs and vitals. DVT and GI prophylaxis. Further recommendations as per clinical course of the patient DVT prophylaxis: Subcutaneous heparin GI Prophylaxis: Pepcid PT/OT: Pending Prognosis is guarded
--- NOTE | 2023-01-22 15:25 | P.PN ---
Subjective Progress Note Date: 01/22/23 I am following up with the patient. He feels about the same. No further seizure-like activity. Objective - Vital Signs Vital signs: Vital Signs Temp 98.1 F 01/22/23 14:00 Pulse 84 01/22/23 14:00 Resp 20 01/22/23 14:00 BP 138/79 01/22/23 14:00 Pulse Ox 97 01/22/23 14:00 FiO2 Intake & Output 01/21/23 01/22/23 01/22/23 18:59 06:59 18:59 Intake Total 1150 240 Output Total 200 275 600 Balance 950 275 -360 Intake: Intake, IV Titration 910 Amount Sodium Chloride 0.9% 1, 910 000 ml @ 130 mls/hr IV . Q7H42M [facility] Rx#:[id number] Oral 240 240 Output: Urine 275 600 Emesis 200 Other: Voiding Method Toilet Toilet Urinal Urinal # Voids 1 - Exam GENERAL: The patient is lying in bed and is not in acute distress. NEUROLOGICAL: Higher mental function: He is is alert, oriented to self, place and time. Patient is following commands. No aphasia and no neglect. Cranial nerves: The pupils are round, equal and reactive to light. Visual mello are full to confrontation throughout. Extraocular movement is intact no nystagmus is noted. Facial sensation is normal to touch throughout. The facial strength is normal throughout. Hearing is normal bilaterally to hand rub. Tong ue is midline and moved [id number] without any difficulty. No dysarthria is noted. Shoulder shrug is normal bilaterally. Motor: The strength is 5 over 5 throughout. Normal tone and bulk. Cerebellum: Normal finger to nose bilaterally. Sensation: Sensation is normal to touch throughout. Some of the workup during his hospital visit consisted of: She has been afebrile so far CBC with differential on presentation is unremarkable Prolactin level was 6.60 which is within normal limits. Plasma-Lyte as soon as 2.40 then resolved to 1.4 which is normal. Initial serum glucose is 125, magnesium 2.4, calcium 7.6 otherwise her symptoms are pounds unremarkable TSH is 1.390. Ammonia levels 13 Calcium level is 9.4. Urine drug screen is positive for cocaine otherwise rest is not detected. Serum alcohol less than 10. CT of the head was reported as no acute intracranial process seen at this time. I personally reviewed the computed tomography scan and agree with report. Routine EEG is normal. There is no focal slowing, epileptiform discharges or seizure on the EEG. - Labs CBC & Chem 7: 01/21/23 05:56 01/21/23 05:56 Assessment and Plan Assessment: This is a 42-year-old gentleman with a history of possible substance abuse who presented from [place] since the patient was found on the ground shaking and his last cocaine and heroin use was about 4 days prior to presenting our facility. He denies of any alcohol use. I feel likely the patient had drug withdrawal with questionable reported seizure-like activity and if was seizure-like activity it's likely provoked seizure from polysubstance abuse (cocaine and heroin). No history of seizures. No seizure on EEG and no further seizures in our facility. Polysubstance abuse and patient takes crack cocaine as well as a heroin for the last 5 years Plan: I will not start the patient on any antiepileptic drugs since this was provoked from his polysubstance abuse and is likely going to withdraw. Routine EEG is normal. Cardiology is consulted because of bradycardia with short MO interval by the primary team We'll defer the rest of the medical management to primary team Patient was counseled on polysubstance use and to continue the seeking rehab There is no further neurological workup. We'll sign off. Please reconsult if needed. Time with Patient: Less than 30
--- NOTE | 2023-01-22 19:40 | P.PN ---
Subjective Progress Note Date: 01/22/23 43 years old male with past medical history of drug abuse. Presents with signs symptoms of substance withdrawal Patient originally from [place] and was on methadone. Patient for about one week and he said he took fentanyl and Suboxone, however patient states that he got tired of the drug and he wanted to quit so he admitted himself to [facility] about 4 days ago however as part of his treatment he started developing severe withdrawal symptoms like vomiting although there was no blood in the bile and greenish insertion with sweating tiredness malaise fatigue insomnia but no pain. He is also smokes about 1 pack per day and he was counseled to quit and he agrees with the nicotine patch no alcohol. He uses mainly cocaine last time he was at was just before he got to [facility] about 4 days ago that his trying to quit now. Also patient reports of having seizure while he was at [facility] from abdominal cramps patient denies homicidal or suicidal ideation or hallucination He drinks minimal or no alcohol He denies urinary symptoms however he complains and heartburns but no overt abdominal pain. He has some dry cough but no chest pain or dyspnea. No headache dizziness weakness or numbness. Patient has no primary care doctor Afebrile, He is bradycardic with heart rate about 46-48. Labs are reviewed he has unremarkable CBC, BMP. Glucose 125 slightly elevated. Lactic acid came back to normal at 1.4. Calcium 10.6, magnesium 2.4. Liver enzymes not elevated. Urine analysis is no suspicious of infection. And is positive for cocaine CT of the brain showing no acute process. EKG shows sinus bradycardia with short NV interval at rate of 49. QTC 403. No significant ST-T changes. 01/22/2023 Patient is seen and evaluated in room at bedside; wants to be discharged back to [facility] today; await evaluation by neurology Vital signs are reviewed and remained stable; no further reports of any seizure activity EEG is completed and does not reveal any seizure activity; patient has not been placed on oral antiepileptic medications; seizure activity likely induced by polysubstance abuse Cardiology and board for bradycardia; heart rate improving from 44 up to 80; deemed likely secondary to substance abuse - We will continue to monitor; patient to be discharged to [facility] once cleared by neurology Objective - Vital Signs Vital signs: Vital Signs Temp 98.1 F 01/22/23 14:00 Pulse 84 01/22/23 14:00 Resp 20 01/22/23 14:00 BP 138/79 01/22/23 14:00 Pulse Ox 97 01/22/23 14:00 FiO2 Intake & Output 01/21/23 01/22/23 01/22/23 18:59 06:59 18:59 Intake Total 1150 240 Output Total 200 275 600 Balance 950 -275 -360 Intake: Intake, IV Titration 910 Amount Sodium Chloride 0.9% 1, 910 000 ml @ 130 mls/hr IV . Q7H42M [facility] Rx#:[id number] Oral 240 240 Output: Urine 275 600 Emesis 200 Other: Voiding Method Toilet Toilet Urinal Urinal # Voids 1 - Exam -GENERAL: The patient is alert and oriented x3, not in any acute distress. Well developed, well nourished. Patient is fatigued tired with sweating, it looks withdrawn HEENT: Pupils are round and equally reacting to light. EOMI. No scleral icterus. No conjunctival pallor. Normocephalic, atraumatic. No pharyngeal erythema. No thyromegaly. CARDIOVASCULAR: S1 and S2 present. No murmurs, rubs, or gallops. PULMONARY: Chest is clear to auscultation, no wheezing , no crackles. ABDOMEN: Soft, nontender, nondistended, normoactive bowel sounds. No palpable organomegaly. MUSCULOSKELETAL: No joint swelling or deformity. EXTREMITIES: No cyanosis, clubbing, or pedal edema. NEUROLOGICAL: Gross neurological examination did not reveal any focal deficits. SKIN: No rashes. no petechiae. - Labs CBC & Chem 7: 01/21/23 05:56 01/21/23 05:56 Assessment and Plan Assessment: With cocaine, fentanyl also he was on Suboxone a certain point Withdrawal symptoms from above Possible seizure which could be due to withdrawal effect. Sinus bradycardia with short NV interval Nicotine dependence Plan: Symptomatic treatment of withdrawal symptoms Neurology consult recommending EEG In with telemetry Check TSH Cardiology consult IV hydration Labs and medication were reviewed.. Continue same treatment. Continue with symptomatic treatment. Resume home medication. Monitor labs and vitals. DVT and GI prophylaxis. Further recommendations as per clinical course of the patient DVT prophylaxis: Subcutaneous heparin GI Prophylaxis: Pepcid PT/OT: Pending Prognosis is guarded
== END 2023-01-22 15:16 | disposition left against medical advice (07) ==
LOC: EC 12:20 → 6NMEDSUR 15:38 → 5NMEDONC 20:07
PROVIDERS: ADMIT Internal Medicine; ATTEND Internal Medicine
DX: F11.13 Opioid abuse with withdrawal (principal); F14.13 Cocaine abuse, unspecified with withdrawal; R00.1 Bradycardia, unspecified; F17.210 Nicotine dependence, cigarettes, uncomplicated; Z79.891 Long term (current) use of opiate analgesic; Z91.030 Bee allergy status; Z71.6 Tobacco abuse counseling
CPT/HCPCS: 96376 ×2; 96361 ×3; 96375 ×2; 96374; 99285; 36415; 95816; 93005; 93306; 80053; 80048; 84443; 82140; 82550; 83605; 83735; 84484; 85025 ×2; 81001; 84146; 80306; 70450; G0378 ×4; G0480; J2060; J1200; J2765; J2405 ×2; 80320

== ENCOUNTER 2023-12-22 18:06 | Emergency (ER) | payer OTHER ==
--- NOTE | 2023-12-22 18:23 | ED ---
Lower Extremity Injury HPI - General Source: patient, RN notes reviewed <Cheyenne Jasmine - Last Filed: 12/22/23 18:22> <Arie Lopez - Last Filed: 12/22/23 19:23> - General Stated Complaint: left ankle pain Time Seen by Provider: 12/22/23 18:22 - History of Present Illness Initial Comments: Quick [id number] male presents emergency department complaint of left ankle pain. Patient states that 2 days ago he was and is intoxicated outside when he rolled his left ankle. Patient is attempting to go to rehabilitation reason strict report to the emergency department for further evaluation of left ankle pain. Denies previous surgeries of the left ankle or left lower extremity. (Cheyenne Jasmine) Dictation was produced using [employer] dictation software. please excuse any grammatical, word or spelling errors. Chief Complaint: 43-year-old male with left ankle pain History of Present Illness: Patient is a 43-year-old male states that 2 to 3 days ago he inverted his left ankle while walking around [facility]. Patient goes to rehab at the methadone clinic. States that he broke his ankle before from soccer. Patient has been ambulating with minimal complications. The ROS documented in this emergency department record has been reviewed and confirmed by me. Those systems with pertinent positive or negative responses have been documented in the HPI. All other systems are other negative and/or noncontributory. (Arie Lopez) - Related Data Home Medications Medication Instructions Recorded Confirmed Acetaminophen Tab [Tylenol] 650 mg PO Q4H MDD 4 doses 01/20/23 01/20/23 Calcium/Mag/Zinc/D 1 tab PO TID PRN 01/20/23 01/20/23 Chlorpheniramine Maleate 4 mg PO Q4H PRN 01/20/23 01/20/23 [Chlor-Trimeton] Ibuprofen [Motrin Ib] 600 mg PO Q6H PRN 01/20/23 01/20/23 Loperamide [Imodium] 4 mg PO QID PRN MDD 8 caps 01/20/23 01/20/23 Melatonin 5 mg PO HS 01/20/23 01/20/23 Multivitamins, Thera [Multivitamin 1 tab PO DAILY 01/20/23 01/20/23 (formulary)] Mylanta 30 ml PO Q4H PRN 01/20/23 01/20/23 Thiamine [Vitamin B-1] 100 mg PO DAILY 01/20/23 01/20/23 Tigan 200mg/2ml 200 mg IM Q6H PRN 01/20/23 01/20/23 Zofran 4mg/2ml 4 mg IM Q6H PRN 01/20/23 01/20/23 buprenorphine HCL [Subutex] 4 mg SUBLINGUAL DIRECTED 01/20/23 01/20/23 buprenorphine HCL [Subutex] See Taper SL DIRECTED 01/20/23 01/20/23 cloNIDine HCL [Catapres] 0.1 - 0.3 mg PO Q4H PRN 01/20/23 01/20/23 ondansetron HCL [Zofran] 8 mg PO Q6H PRN 01/20/23 01/20/23 Allergies Allergy/AdvReac Type Severity Reaction Status Date / Time bee pollen Allergy Anaphylaxis Verified 12/22/23 18:33 Review of Systems ROS Other: All systems not noted in ROS Statement are negative. <Cheyenne Jasmine - Last Filed: 12/22/23 18:22> ROS Other: All systems not noted in ROS Statement are negative. <Arie Lopez - Last Filed: 12/22/23 19:23> ROS Statement: Those systems with pertinent positive or pertinent negative responses have been documented in the HPI. Past Medical History Additional Past Medical History / Comment(s): unknown cardiac hx. History of Any Multi-Drug Resistant Organisms: None Reported Past Surgical History: No Surgical Hx Reported Past Anesthesia/Blood Transfusion Reactions: No Reported Reaction Past Psychological History: No Psychological Hx Reported Smoking Status: Current every day smoker Past Drug Use History: Cocaine, Opiates <Cheyenne Jasmine - Last Filed: 12/22/23 18:22> General Exam <Cheyenne Jasmine - Last Filed: 12/22/23 18:22> <Arie Lopez - Last Filed: 12/22/23 19:23> - General Exam Comments Initial Comments: Visual Physical Exam Vital signs reviewed General: Well-appearing, nontoxic, no acute distress. Head: Normocephalic, atraumatic Eyes: PERRLA, EOMI ENT: Airway patent Chest: Nonlabored breathing Skin: No visual rash, normal skin tone Neuro: Alert and oriented 3 Musculoskeletal: No gross abnormalities (Cheyenne Jasmine) PHYSICAL EXAM: General Impression: Alert and oriented x3, not in acute distress HEENT: Normocephalic atraumatic, extra-ocular movements intact, pupils equal and reactive to light bilaterally, mucous membranes moist. Cardiovascular: Heart regular rate and rhythm Chest: Able to complete full sentences, no retractions, no tachypnea Abdomen: abdomen soft, non-tender, non-distended, no organomegaly Musculoskeletal: Pulses present and equal in all extremities, no peripheral edema Motor: no focal deficits noted Neurological: CN II-XII grossly intact, no focal motor or sensory deficits noted Skin: Intact with no visualized rashes Psych: Normal affect and mood Left ankle: Mild swelling over the lateral malleolus (Arie Lopez) Course Vital Signs 12/22/23 18:30 Temperature 98 F Pulse Rate 50 L Respiratory 18 Rate Blood Pressure 133/74 O2 Sat by Pulse 100 Oximetry Medical Decision Making <Cheyenne Jasmine - Last Filed: 12/22/23 18:22> <Arie Lopez - Last Filed: 12/22/23 19:23> - Medical Decision Making I completed the quick note portion of this chart signed Cheyenne Jasmine PA-C (Cheyenne Jasmine) Was pt. sent in by a medical professional or institution ([facility], [facility], urgent care, hospital, or prison...) When possible be specific @ -No Did you speak to anyone other than the patient for history (EMS, parent, family, police, friend...)? What history was obtained from this source @ -No Did you review nursing and triage notes (agree or disagree)? Why? @ -I reviewed and agree with nursing and triage notes Were old charts reviewed (outside hosp., previous admission, EMS record, old EKG, old radiological studies, urgent care reports/EKG's, prison records)? Report findings @ -No old charts were reviewed Differential Diagnosis (chest pain, altered mental status, abdominal pain women, abdominal pain men, vaginal bleeding, musculoskeletal, weakness, fever, dyspnea, syncope, headache, dizziness, GI bleed, back pain, seizure, CVA, palpatations, mental health)? @ -Not applicable EKG interpreted by me (3pts min.). @ -None done X-rays interpreted by me (1pt min.). @ -Left ankle x-ray shows old medial malleolus fracture CT interpreted by me (1pt min.). @ -None done U/S interpreted by me (1pt. min.). @ -None done What testing was considered but not performed or refused? (CT, X-rays, U/S, labs)? Why? @ -None What meds were considered but not given or refused? Why? @ -None Was smoking cessation discussed for >3mins.? @ -No Were there social determinants of health that impacted care today? How? (Homele ssness, low income, unemployed, alcoholism, drug addiction, transportation, low edu. Level, literacy, decrease access to med. care, group home, rehab)? @ -No Was there de-escalation of care discussed even if they declined (Discuss DNR or withdrawal of care, Hospice)? DNR status @ -No What co-morbidities impacted this encounter? (DM, HTN, Smoking, COPD, CAD, Cancer, CVA, ARF, Chemo, Hep., AIDS, mental health diagnosis, sleep apnea, morbid obesity)? @ -None Was patient admitted / discharged? Hospital course, mention meds given and route, prescriptions, significant lab abnormalities, going to OR and other pertinent info. @ -43-year-old male presents to the emergency department for left ankle injury. Vital signs stable. Patient well-appearing. Minimal swelling on the left lateral malleolus. 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 Patient given and Motrin discharged advised follow-up with primary doctor. Did you discuss the management of the patient with other professionals (professionals i.e. , PA, [employer], lab, RT, psych nurse, social director, correctional program specialist, teacher, commissioned defence force officer, shelter case manager)? Give summary @ -No Was critical care preformed (if so, how long)? @ -No Undiagnosed new problem with uncertain prognosis? @ -No Drug Therapy requiring intensive monitoring for toxicity (Heparin, Nitro, Insulin, Cardizem)? @ -No Were any procedures done? @ -No Diagnosis/symptom? Acute, or Chronic, or Acute on Chronic? Uncomplicated (without systemic symptoms) or Complicated (systemic symptoms)? @ -Ankle sprain Side effects of treatment? @ -No Exacerbation, Progression, or Severe Exacerbation? @ -No Poses a threat to life or bodily function? How? (Chest pain, [place], PR, pneumonia, PE, COPD, DKA, ARF, appy, cholecystitis, CVA, Diverticulitis, Homicidal, Suicidal, threat to staff... and all critical care pts) @ -No (Arie Lopez) Disposition <Cheyenne Jasmine - Last Filed: 12/22/23 18:22> Is patient prescribed a controlled substance at d/c from ED?: No Time of Disposition: 19:23 <Arie Lopez - Last Filed: 12/22/23 19:23> Clinical Impression: Ankle sprain Disposition: HOME SELF-CARE Condition: Good Instructions (If sedation given, give patient instructions): Ankle Sprain (ED) Referrals: None,Stated [Primary Care Provider] - 1-2 days
[2023-12-22 18:33] VITALS: RESP 18
--- NOTE | 2023-12-22 19:10 | XR ---
EXAMINATION TYPE: XR ankle complete 3 views LT DATE OF EXAM: 12/22/2023 Comparison: None Clinical History: 43-year-old male fall, injury, pain Findings: Corticated ossific density below the medial malleolus. Otherwise, ankle mortise is congruent. Subtala r joint alignment. Smooth delineation to the Achilles tendon. No acute fracture, subluxation, or disl ocation is seen. Some soft tissue swelling. 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 There is some soft tissue swelling about the ankle but no convincing acute fracture identified.
[2023-12-22] MEDS: IBUPROFEN 800 MG TAB PO STA (19:53)
[2023-12-22 20:04] VITALS: BP 162/80; PULSE 57; TEMP 98.1
== END 2023-12-22 20:11 | disposition home or self-care (01) ==
LOC: EC 18:06
CPT/HCPCS: 99283